=== PATIENT | male | born 1950 | race American Indian/Alaskan Native ===

== ENCOUNTER → 2016-09-16 | Outpatient (CLI) | payer MEDICARE ==
[~2016-09-16] MED LIST: ASPIRIN EC81 MG PO; COLACE100 MG PO; COZAAR100 MG PO; GLUCOPHAGE1000 MG PO; KEPPRA500 MG PO; LEVEMIR100 UNIT/1 SUB-Q; LEVOTHROID (SY50 MCG PO; LOPRESSOR50 M1 PO; PHILLIPS'400 MG/5 M PO; PROVENTIL OR V6.7 GM INH; REMERON15 M2 PO; THERMOTABS TAB1 EACH PO; TIAZAC120 MG PO
== END | disposition disaster alternative care site (69) ==
LOC: LGSMG 16:35
DX: I12.9 Hypertensive chronic kidney disease with stage 1 through stage 4 chronic kidney disease, or unspecified chronic kidney disease (principal); N18.9 Chronic kidney disease, unspecified; F10.20 Alcohol dependence, uncomplicated; E78.5 Hyperlipidemia, unspecified; E87.1 Hypo-osmolality and hyponatremia; R80.9 Proteinuria, unspecified; Z79.899 Other long term (current) drug therapy

== ENCOUNTER → 2017-01-15 | Outpatient (CLI) | payer MEDICARE | LOC: LGSMG 13:59 | DX: Z00.00 Encounter for general adult medical examination without abnormal findings (principal); I12.9 Hypertensive chronic kidney disease with stage 1 through stage 4 chronic kidney disease, or unspecified chronic kidney disease; F10.20 Alcohol dependence, uncomplicated; E11.9 Type 2 diabetes mellitus without complications; E78.5 Hyperlipidemia, unspecified; E87.1 Hypo-osmolality and hyponatremia; R80.9 Proteinuria, unspecified ==